=== PATIENT | female | born 1950 | race Caucasian/White ===

== ENCOUNTER 2017-06-23 08:01 | Emergency (ER) | payer MEDICARE ==
[~2017-06-23] VITALS: Ht 172.7 cm; Wt 72.6 kg
[2017-06-23] MEDS ORDERED: ONDA4TAB10 SL (08:30)
[2017-06-23] MEDS ORDERED: HYDR-2758 PO (08:30)
--- NOTE | 2017-06-23 08:31 | PHYS DOC ---
Adult General Chief Complaint Chief Complaint: RIB PAIN HPI HPI 67-year-old female presenting to the emergency department today with left rib pain. 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 The pain is sharp moderate intermittent and worse with deep breaths. She denies nausea or diaphoresis or vomiting. She denies having history of heart attacks in the past. Review of systems is negative for unilateral leg swelling hemoptysis or shortness of breath abdominal pain nausea vomiting or diaphoresis. All other review of systems is negative unless otherwise noted in history of present illness. ED course: 67-year-old female presenting to the emergency department today with pain in her chest wall after sustaining a mechanical injury while working on a pool. No crepitus to palpation of the chest wall. No evidence of ecchymosis. Tenderness to palpation of the left chest wall about 8 to 10th rib. Otherwise the patient is well-appearing and without any other abnormalities on physical exam. Lungs sounds are present bilaterally. Chest x-ray with rib series obtained along with blood work and EKG. x-rays unremarkable.EKG shows sinus rhythm with regular rate. Normal intervals. Normal axis. ST segments are congruent. Not suggestive of ACS. Reviewed by myself. X-rays reviewed by myself. No obvious fracture. The patient was then discharged home in stable condition to follow up with their primary care physician over the next 2-3 days. They were to return if their symptoms worsened or if they were concerned for any reason. [id number] discharge instructions and return precautions were given. Patient's questions were answered to their satisfaction. Patient is comfortable plan. Review of Systems Review of Systems SEE ABOVE. Current Medications Current Medications Current Medications Medications (Trade) Dose Ordered Sig/[facility] Start Time Stop Time Status Last Admin Dose Admin Ibuprofen (Motrin) 400 mg 1X ONCE 06/23/17 08:45 06/23/17 08:46 DC 06/23/17 08:58 400 MG Allergies Allergies Allergies Coded Allergies Type Severity Reaction Last Updated Verified No Known Drug Allergies 06/23/17 No Physical Exam Physical Exam SEE ABOVE Constitutional: Well developed, well nourished, no acute distress, non-toxic appearance. [] HENT: Normocephalic, atraumatic, bilateral external ears normal, oropharynx moist, no oral exudates, nose normal. [] Eyes: PERRLA, EOMI, conjunctiva normal, no discharge. [] Neck: Normal range of motion, no tenderness, supple, no stridor. [] Cardiovascular:Heart rate regular rhythm, no murmur []SEE ABOVE Lungs & Thorax: Bilateral breath sounds clear to auscultation []SEE ABOVE Abdomen: Bowel sounds normal, soft, no tenderness, no masses, no pulsatile masses. [] Skin: Warm, dry, no erythema, no rash. [] Back: No tenderness, no CVA tenderness. [] Extremities: No tenderness, no cyanosis, no clubbing, ROM intact, no edema. [] Neurologic: Alert and oriented X 3, normal motor function, normal sensory function, no focal deficits noted. [] Psychologic: Affect normal, judgement normal, mood normal. [] Current Patient Data Vital Signs Vital Signs Date Time Temp Pulse Resp B/P (MAP) Pulse Ox O2 Delivery O2 Flow Rate FiO2 06/23/17 09:00 83 22 144/68 (93) 99 Room Air 06/23/17 08:15 97.8 97.8 Lab Values Laboratory Tests Test 06/23/17 08:50 White Blood Count 6.9 x10^3/uL (4.0-11.0) Red Blood Count 3.81 x10^6/uL (3.50-5.40) Hemoglobin 12.5 g/dL (12.0-15.5) Hematocrit 35.9 % (36.0-47.0) L Mean Corpuscular Volume 94 fL (79-100) Mean Corpuscular Hemoglobin 33 pg (25-35) Mean Corpuscular Hemoglobin Concent 35 g/dL (31-37) Red Cell Distribution Width 12.6 % (11.5-14.5) Platelet Count 196 x10^3/uL (140-400) Neutrophils (%) (Auto) 60 % (31-73) Lymphocytes (%) (Auto) 28 % (24-48) Monocytes (%) (Auto) 9 % (0-9) Eosinophils (%) (Auto) 3 % (0-3) Basophils (%) (Auto) 1 % (0-3) Neutrophils # (Auto) 4.1 x10^3uL (1.8-7.7) Lymphocytes # (Auto) 1.9 x10^3/uL (1.0-4.8) Monocytes # (Auto) 0.6 x10^3/uL (0.0-1.1) Eosinophils # (Auto) 0.2 x10^3/uL (0.0-0.7) Basophils # (Auto) 0.1 x10^3/uL (0.0-0.2) Sodium Level 140 mmol/L (136-145) Potassium Level 4.4 mmol/L (3.5-5.1) Chloride Level 104 mmol/L (98-107) Carbon Dioxide Level 25 mmol/L (21-32) Anion Gap 11 (6-14) Blood Urea Nitrogen 16 mg/dL (7-20) Creatinine 1.2 mg/dL (0.6-1.0) H Estimated GFR (Cockcroft-Gault) 44.9 Glucose Level 99 mg/dL (70-99) Calcium Level 8.4 mg/dL (8.5-10.1) L Troponin I Quantitative < 0.017 ng/mL (0.000-0.055) Laboratory Tests 06/23/17 08:50 Laboratory Tests 06/23/17 08:50 EKG EKG [] Radiology/Procedures Radiology/Procedures [] Course & Med Decision Making Course & Med Decision Making Pertinent Labs and Imaging studies reviewed. (See chart for details) [] Dragon Disclaimer Dragon Disclaimer This electronic medical record was generated, in whole or in part, using a voice recognition dictation system. Departure Departure Impression: Primary Impression: Rib pain on left side Disposition: 01 HOME, SELF-CARE Condition: STABLE Referrals: ALTAF SCHERER MD Patient Instructions: Pain Medicine Instructions, Rib Contusion Additional Instructions: Thank you for allowing us to participate in your care today. Followup with your primary care physician in 3 days if your symptoms do not improve. Call your Primary Doctor tomorrow and inform them of your visit today. If you do not have a primary care provider you can ask for a list of our primary care providers. Return to the emergency department you have any new or concerning findings. This should be evaluated by the primary care physician and any necessary consulting services for continued management within a few days after discharge. Return to emergency room if you have any new or concerning symptoms including but not limited to fever, chills, nausea, vomiting, intractable pain, any new rashes, chest pain, shortness of air, uncontrolled bleeding, difficulty breathing, and/or vision loss. You may have been prescribed medication that can change in your level of thinking and ability to operate machinery. These medications include hydrocodone and Ativan. Also, Benadryl has been known to do this as well. Be sure to check with your pharmacist and ask if the medications you've prescribed can affect your level of consciousness. I recommend not operating heavy machinery or driving while on medication such as these. Scripts Ondansetron (ZOFRAN ODT) 4 Mg Tab.rapdis 1 TAB SL PRN Q8HRS Y for NAUSEA, #6 TAB 0 Refills Prov: NORBERTO LALA MD 06/23/17 Hydrocodone Bit/Acetaminophen (HYDROCODONE-APAP 5-325 ) 1 Each Tablet 1 TAB PO PRN Q6HRS Y for PAIN, #15 TAB 0 Refills Be careful as this medication may cause you to be drowsy or tired. Do not drive on this medication. Prov: NORBERTO LALA MD 06/23/17 NORBERTO LALA MD Jun 23, 2017 08:31
[2017-06-23] MEDS ORDERED: IBUPROFEN 400 MG TABLET. PO ONE (08:45)
--- NOTE | 2017-06-23 08:47 | RAD ---
Left rib series with single view chest 06/23/2017 at 0823 hours Indication: Left rib pain over the breast Comparison: Chest radiograph 05/05/2010 Technique: Single view of the chest and 4 dedicated views of the left ribs are provided. Findings: FINDINGS: The heart size is normal. The lungs are clear. No pleural effusion or pneumothorax is identified. The pulmonary vascularity is normal. There are 12 paired ribs. No evidence for a acutely displaced left-sided rib fracture. IMPRESSION: No acute abnormality detected. No acute displaced left-sided rib fracture.
[2017-06-23 09:03] LABS: BASO # 0.1 x10^3/uL (0.0-0.2); BASO % 1 % (0-3); EOS % 3 % (0-3); HEMATOCRIT 35.9 % (36.0-47.0); HEMOGLOBIN 12.5 g/dL (12.0-15.5); LYMPH # 1.9 x10^3/uL (1.0-4.8); LYMPH % 28 % (24-48); MEAN CORPUSCULAR HEMOGLOBIN 33 pg (25-35); MEAN CORPUSCULAR HGB CONC 35 g/dL (31-37); MEAN CORPUSCULAR VOLUME 94 fL (79-100); MONO % 9 % (0-9); NEUT % 60 % (31-73); PLATELET COUNT 196 x10^3/uL (140-400); RED BLOOD COUNT 3.81 x10^6/uL (3.50-5.40); RED CELL DISTRIBUTION WIDTH 12.6 % (11.5-14.5); WHITE BLOOD COUNT 6.9 x10^3/uL (4.0-11.0)
[2017-06-23 09:09] LABS: CALCIUM 8.4 mg/dL (8.5-10.1); CREATININE 1.2 mg/dL (0.6-1.0); GFR 44.9; POTASSIUM 4.4 mmol/L (3.5-5.1)
[2017-06-23 09:30] VITALS: BP 148/63
--- NOTE | 2017-06-23 13:36 | EKG ---
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
== END 2017-06-23 09:33 | disposition home or self-care (01) ==
LOC: ER 08:01
DX: R07.81 Pleurodynia (principal)
CPT/HCPCS: 36415; 71101; 80048; 84484; 85025; 93005; 99285-25

== ENCOUNTER 2020-12-02 14:46 | Inpatient (IN) | payer MEDICARE ==
[~2020-12-02] VITALS: Ht 172.7 cm; Wt 83.0 kg
[~2020-12-02 14:46] MED LIST: HYDR-2761 PO; ONDA4TAB10 SL
[2020-12-02 15:31] LABS: BASO # 0.1 x10^3/uL (0.0-0.2); BASO % 1 % (0-3); EOS # 0.1 x10^3/uL (0.0-0.7); EOS % 1 % (0-3); HEMATOCRIT 36.3 % (36.0-47.0); HEMOGLOBIN 12.1 g/dL (12.0-15.5); LYMPH # 1.1 x10^3/uL (1.0-4.8); LYMPH % 14 % (24-48); MEAN CORPUSCULAR HEMOGLOBIN 32 pg (25-35); MEAN CORPUSCULAR HGB CONC 33 g/dL (31-37); MEAN CORPUSCULAR VOLUME 97 fL (79-100); MONO # 0.9 x10^3/uL (0.0-1.1); MONO % 12 % (0-9); NEUT # 5.7 x10^3/uL (1.8-7.7); NEUT % 73 % (31-73); PLATELET COUNT 197 x10^3/uL (140-400); RED BLOOD COUNT 3.75 x10^6/uL (3.50-5.40); RED CELL DISTRIBUTION WIDTH 13.3 % (11.5-14.5); WHITE BLOOD COUNT 7.8 x10^3/uL (4.0-11.0)
[2020-12-02 15:51] LABS: ALBUMIN 3.9 g/dL (3.4-5.0); ALK PHOS 117 U/L (46-116); ALT (SGPT) 27 U/L (14-59); AST (SGOT) 35 U/L (15-37); BLOOD UREA NITROGEN 17 mg/dL (7-20); CALCIUM 9.1 mg/dL (8.5-10.1); CARBON DIOXIDE 25 mmol/L (21-32); DIRECT BILIRUBIN < 0.1 mg/dL (0.0-0.2); GLUCOSE 107 mg/dL (70-99); LIPASE 166 U/L (73-393); TOTAL BILIRUBIN 0.5 mg/dL (0.2-1.0); TOTAL PROTEIN 7.1 g/dL (6.4-8.2)
--- NOTE | 2020-12-02 15:54 | PHYS DOC ---
Past Medical History Past Medical History: COPD Additional Past Medical Histor: arrythmia Past Surgical History: Hysterectomy Additional Past Surgical Histo: Neck Smoking Status: Former Smoker Alcohol Use: Rarely Drug Use: None General Adult EDM: Chief Complaint: SHORTNESS OF BREATH HPI: HPI: This is a pleasant 70-year-old female who is in the emergency department today with shortness of breath and chest pain. This is been present for about 3 days. She denies abdominal pain vomiting cough or fever. She has not had recent exposure to Covid. Her pain is a pressure sensation that is nonradiating without alleviating factors. It is mild to moderate intermittent without exacerbating factors. It is not associated with diaphoresis fevers chills. She has not had leg swelling hemoptysis or leg pain. She did recently have a total knee replacement surgery of the left knee. This has been healing without difficulty. [facility] Review of systems is negative for abdominal pain vomiting fevers chills. Positive for chest pain. Positive for shortness of breath. All other review of systems negative. ED course: 70-year-old female presenting with shortness of breath and chest pain. On arrival EKG obtained and reviewed by myself shows sinus rhythm. Right bundle branch block pattern present. ST segments congruent. Not suggestive of acute ischemia. Chest x-ray blood work and CT angiogram ordered. CBC unrema rkable. Chemistry panel unremarkable. Troponin within normal limits. proBNP mildly elevated. Chest x-ray within normal limits. CT angiogram negative for pulmonary embolism. Will admit the patient for serial troponins. I spoke to the hospitalist who accepts patient for admission. Heart Score: HEART Score for Chest Pain: HEART Score for Chest Pain Response (Comments) Value History Moderately Suspicious 1 ECG Normal 0 Age > 65 2 Risk Factors 1 or 2 Risk Factors 1 Troponin < Normal Limit 0 Total 4 Risk Factors: Risk Factors: DM, Current or recent (<one month) smoker, HTN, HLP, family history of CAD, obesity. Risk Scores: Score 0 - 3: 2.5% MACE over next 6 weeks - Discharge Home Score 4 - 6: 20.3% MACE over next 6 weeks - Admit for Clinical Observation Score 7 - 10: 72.7% MACE over next 6 weeks - Early Invasive Strategies Allergies: Allergies: Allergies Coded Allergies Type Severity Reaction Last Updated Verified No Known Drug Allergies 06/23/17 No Physical Exam: PE: Constitutional: Well developed, well nourished, no acute distress, non-toxic appearance. [] HENT: Normocephalic, atraumatic, bilateral external ears normal, oropharynx moist, no oral exudates, nose normal. [] Eyes: PERRLA, EOMI, conjunctiva normal, no discharge. [] Neck: Normal range of motion, no tenderness, supple, no stridor. [] Cardiovascular:Heart rate regular rhythm, no murmur [] Lungs & Thorax: Bilateral breath sounds clear to auscultation [] Abdomen: Bowel sounds normal, soft, no tenderness, no masses, no pulsatile masses. [] Skin: Warm, dry, no erythema, no rash. [] Back: No tenderness, no CVA tenderness. [] Extremities: No tenderness, no cyanosis, no clubbing, ROM intact, no edema. [] Left knee has a healing scar which is clean dry and intact. Palpable pulse distally with 2-second cap refill. Normal neurovascular status of the extremities. Neurologic: Alert and oriented X 3, normal motor function, normal sensory function, no focal deficits noted. [] Psychologic: Affect normal, judgement normal, mood normal. [] Current Patient Data: Labs: Laboratory Tests Test 12/02/20 15:23 White Blood Count 7.8 x10^3/uL (4.0-11.0) Red Blood Count 3.75 x10^6/uL (3.50-5.40) Hemoglobin 12.1 g/dL (12.0-15.5) Hematocrit 36.3 % (36.0-47.0) Mean Corpuscular Volume 97 fL (79-100) Mean Corpuscular Hemoglobin 32 pg (25-35) Mean Corpuscular Hemoglobin Concent 33 g/dL (31-37) Red Cell Distribution Width 13.3 % (11.5-14.5) Platelet Count 197 x10^3/uL (140-400) Neutrophils (%) (Auto) 73 % (31-73) Lymphocytes (%) (Auto) 14 % (24-48) L Monocytes (%) (Auto) 12 % (0-9) H Eosinophils (%) (Auto) 1 % (0-3) Basophils (%) (Auto) 1 % (0-3) Neutrophils # (Auto) 5.7 x10^3/uL (1.8-7.7) Lymphocytes # (Auto) 1.1 x10^3/uL (1.0-4.8) Monocytes # (Auto) 0.9 x10^3/uL (0.0-1.1) Eosinophils # (Auto) 0.1 x10^3/uL (0.0-0.7) Basophils # (Auto) 0.1 x10^3/uL (0.0-0.2) Laboratory Tests 12/02/20 15:23 Vital Signs: Vital Signs Date Time Temp Pulse Resp B/P (MAP) Pulse Ox O2 Delivery O2 Flow Rate FiO2 12/02/20 14:46 98.7 94 18 142/66 (91) 99 Room Air 98.7 EKG: EKG: [] Radiology/Procedures: Radiology/Procedures: [] Course & Med Decision Making: Course & Med Decision Making Pertinent Labs and Imaging studies reviewed. (See chart for details) [] Dragon Disclaimer: Dragjose Disclaimer: This electronic medical record was generated, in whole or in part, using a voice recognition dictation system. Departure Departure Impression: Primary Impression: Chest pain Additional Impression: Shortness of breath Disposition: ADMITTED INPT THIS HOSP Admitting Physician: [facility] Condition: STABLE Referrals: NO PCP (PCP) NORBERTO LALA MD Dec 02, 2020 15:54
--- NOTE | 2020-12-02 15:58 | RAD ---
INDICATION: Reason: SOA / Spl. Instructions: / History: COMPARISON: June 2017 FINDINGS: Single view of chest obtained. Calcific atherosclerosis. Cardiac silhouette is similar to prior. Obliquely oriented line left upper lung likely secondary to overlap of structures. There is a similar appearance on the right. No defini te focal airspace consolidation. IMPRESSION: * Similar exam compared to prior without a new airspace consolidation. Electronically signed by: Cody Brannon MD (12/02/2020 3:55 PM) [id number]
[2020-12-02] MEDS ORDERED: IOHEXOL 350 MG/ML 100 ML VIAL. IV ONE (17:00)
[2020-12-02] MEDS ORDERED: CONTRAST GIVEN. MC PRN (17:00)
[2020-12-02 17:20] LABS: ANION GAP 9 (6-14); CHLORIDE 105 mmol/L (98-107); POTASSIUM 5.2 mmol/L (3.5-5.1); SODIUM 139 mmol/L (136-145)
--- NOTE | 2020-12-02 17:49 | RAD ---
Exam: CTA chest INDICATION: Chest pain TECHNIQUE: Sequential axial images through the chest obtained following the administration of 75 mL o f Isovue-370 IV contrast. Sagittal and coronal reformatted images were reconstructed from the axial d jonathan and reviewed. 3-D reformatted images were reconstructed from the axial data and reviewed. Comparisons: Chest x-ray same day FINDINGS: Visualized portions of the thyroid are unremarkable. No enlarged mediastinal lymph nodes. Heart size is normal. No pericardial effusion. Coronary artery calcifications. Thoracic aorta has a n ormal course and caliber. Pulmonary artery not enlarged. No pulmonary embolus identified within the m ain, lobar or segmental pulmonary arteries. Airways are patent. Mild centrilobular emphysematous change noted the upper lungs. No consolidation o r pneumothorax. No pleural effusion or thickening. Visualized upper abdomen is unremarkable. No suspicious osseous lesions or acute fractures. IMPRESSION: No pulmonary embolus identified within the main, lobar or segmental pulmonary arteries. Exposure: One or more of the following in the visualized dose reduction techniques were utilized for this examination: 1. Automated exposure control 2. Adjustment of the MA and/or KV according to patient size 3. Use of iterative of reconstructive technique Electronically signed by: Brenda Santiago MD (12/02/2020 5:47 PM) [facility]
[2020-12-02 20:30] VITALS: BP 135/63
[2020-12-02] MEDS ORDERED: NAPR220C4 PO (21:57)
[2020-12-02] MEDS: traMADol 50 MG TABLET PO PRN (22:40)
--- NOTE | 2020-12-02 22:47 | PDOC1 ---
History and Physical Date of Admission Date of Admission DATE: 12/02/20 TIME: 22:41 Identification/Chief Complaint Chief Complaint Chest Pain Source Source: Patient History of Present Illness History of Present Illness Patient is a 70 yo female with no significant PMHx, who presented to the ED with complaint of intermittent left sided chest pain for the past 3-4 days. She describes her pain as more of chest pressure. She denies any significant aggravating or alleviating factors, but does note associated exertional dyspnea. Upon evaluation in the ED, initial troponin was <0.017. She had a recent left total knee replacement about 6 weeks ago. CTA obtained on admission negative for PE. Will admit patient for further medical management. Past Medical History Past Medical History No pertinent PMHx Past Surgical History Past Surgical History Left knee replacement Family History Family History: Coronary Artery Disease Social History Smoke: <1 pack per day ALCOHOL: none Drugs: None Current Problem List Problem List Problems Medical Problems: (1) Chest pain Status: Acute (2) Shortness of breath Status: Acute Current Medications Current Medications Current Medications Iohexol (Omnipaque 350 Mg/ml) 90 ml 1X ONCE IV Last administered on 12/02/20at 17:20; Start 12/02/20 at 17:00; Stop 12/02/20 at 17:01; Status DC Info (CONTRAST GIVEN -- Rx MONITORING) 1 each PRN DAILY PRN MC SEE COMMENTS; Start 12/02/20 at 17:00; Stop 12/04/20 at 16:59 Tramadol HCl (Ultram) 50 mg PRN Q6HRS PRN PO PAIN Last administered on at 22:40; Start 12/02/20 at 22:15 Lorazepam (Ativan) 1 mg PRN Q6HRS PRN PO ANXIETY / AGITATION Last administered on 12/02/20at 22:40; Start 12/02/20 at 22:15 Lorazepam (Ativan) 2 mg PRN Q6HRS PRN PO ANXIETY / AGITATION; Start 12/02/20 at 22:15 Active Scripts Active Zofran Odt (Ondansetron) 4 Mg Tab.rapdis 1 Tab SL PRN Q8HRS PRN Reported Aleve (Naproxen Sodium) 220 Mg Capsule 220 Mg PO BID PRN Allergies Allergies: Coded Allergies: No Known Drug Allergies (Unverified , 06/23/17) ROS Review of System GENERAL: No history of weight change, weakness or fevers. SKIN: No bruising, hair changes or rashes. EYES: No blurred, double or loss of vision. NOSE AND THROAT: No history of nosebleeds, hoarseness or sore throat. HEART: Chest pain. Denies palpitations. LUNGS: Dyspnea on exertion. Denies cough, hemoptysis, wheezing. GASTROINTESTINAL: Denies nausea, vomiting, abdominal pain. GENITOURINARY: Denies dysuria, frequency, urgency, hematuria. NEUROLOGIC: Denies history of numbness, tingling, tremor or weakness. PSYCHIATRIC: Denies anxiety, denies depression. ENDOCRINE: No history of heat or cold intolerance, polyuria or polydipsia. EXTREMITIES: Left knee pain. Denies muscle weakness. Physical Exam Physical Exam General: Alert, Oriented X3, Cooperative, mild distress HEENT: PERRLA, EOMI Lungs: Clear to auscultation, Normal air movement Heart: Tachycardic. No murmurs Cardiovascular: S1, S2 Abdomen: Normal bowel sounds, Soft, No tenderness Extremities: Left knee with well-healed surgical scar, no erythema or edema. No clubbing, No cyanosis Skin: No rashes, No significant lesion Neuro: Normal speech, Normal tone, Sensation intact Psych/Mental Status: Anxious. Mental status NL. Vitals Vitals Vital Signs Date Time Temp Pulse Resp B/P (MAP) Pulse Ox O2 Delivery O2 Flow Rate FiO2 12/02/20 22:40 Room Air 12/02/20 20:30 98.0 88 20 135/63 (87) 99 98.0 Labs Labs Laboratory Tests Test 12/02/20 15:23 White Blood Count 7.8 x10^3/uL (4.0-11.0) Red Blood Count 3.75 x10^6/uL (3.50-5.40) Hemoglobin 12.1 g/dL (12.0-15.5) Hematocrit 36.3 % (36.0-47.0) Mean Corpuscular Volume 97 fL (79-100) Mean Corpuscular Hemoglobin 32 pg (25-35) Mean Corpuscular Hemoglobin Concent 33 g/dL (31-37) Red Cell Distribution Width 13.3 % (11.5-14.5) Platelet Count 197 x10^3/uL (140-400) Neutrophils (%) (Auto) 73 % (31-73) Lymphocytes (%) (Auto) 14 % (24-48) Monocytes (%) (Auto) 12 % (0-9) Eosinophils (%) (Auto) 1 % (0-3) Basophils (%) (Auto) 1 % (0-3) Neutrophils # (Auto) 5.7 x10^3/uL (1.8-7.7) Lymphocytes # (Auto) 1.1 x10^3/uL (1.0-4.8) Monocytes # (Auto) 0.9 x10^3/uL (0.0-1.1) Eosinophils # (Auto) 0.1 x10^3/uL (0.0-0.7) Basophils # (Auto) 0.1 x10^3/uL (0.0-0.2) Sodium Level 139 mmol/L (136-145) Potassium Level 5.2 mmol/L (3.5-5.1) Chloride Level 105 mmol/L (98-107) Carbon Dioxide Level 25 mmol/L (21-32) Anion Gap 9 (6-14) Blood Urea Nitrogen 17 mg/dL (7-20) Creatinine 1.0 mg/dL (0.6-1.0) Estimated GFR (Cockcroft-Gault) 55.0 Glucose Level 107 mg/dL (70-99) Calcium Level 9.1 mg/dL (8.5-10.1) Total Bilirubin 0.5 mg/dL (0.2-1.0) Direct Bilirubin < 0.1 mg/dL (0.0-0.2) Aspartate Amino Transf (AST/SGOT) 35 U/L (15-37) Alanine Aminotransferase (ALT/SGPT) 27 U/L (14-59) Alkaline Phosphatase 117 U/L (46-116) Troponin I Quantitative < 0.017 ng/mL (0.000-0.055) ES-Tgf-H-Type Natriuretic Peptide 245 pg/mL (0-124) Total Protein 7.1 g/dL (6.4-8.2) Albumin 3.9 g/dL (3.4-5.0) Lipase 166 U/L (73-393) Laboratory Tests Test 12/02/20 15:23 White Blood Count 7.8 x10^3/uL (4.0-11.0) Red Blood Count 3.75 x10^6/uL (3.50-5.40) Hemoglobin 12.1 g/dL (12.0-15.5) Hematocrit 36.3 % (36.0-47.0) Mean Corpuscular Volume 97 fL (79-100) Mean Corpuscular Hemoglobin 32 pg (25-35) Mean Corpuscular Hemoglobin Concent 33 g/dL (31-37) Red Cell Distribution Width 13.3 % (11.5-14.5) Platelet Count 197 x10^3/uL (140-400) Neutrophils (%) (Auto) 73 % (31-73) Lymphocytes (%) (Auto) 14 % (24-48) Monocytes (%) (Auto) 12 % (0-9) Eosinophils (%) (Auto) 1 % (0-3) Basophils (%) (Auto) 1 % (0-3) Neutrophils # (Auto) 5.7 x10^3/uL (1.8-7.7) Lymphocytes # (Auto) 1.1 x10^3/uL (1.0-4.8) Monocytes # (Auto) 0.9 x10^3/uL (0.0-1.1) Eosinophils # (Auto) 0.1 x10^3/uL (0.0-0.7) Basophils # (Auto) 0.1 x10^3/uL (0.0-0.2) Sodium Level 139 mmol/L (136-145) Potassium Level 5.2 mmol/L (3.5-5.1) Chloride Level 105 mmol/L (98-107) Carbon Dioxide Level 25 mmol/L (21-32) Anion Gap 9 (6-14) Blood Urea Nitrogen 17 mg/dL (7-20) Creatinine 1.0 mg/dL (0.6-1.0) Estimated GFR (Cockcroft-Gault) 55.0 Glucose Level 107 mg/dL (70-99) Calcium Level 9.1 mg/dL (8.5-10.1) Total Bilirubin 0.5 mg/dL (0.2-1.0) Direct Bilirubin < 0.1 mg/dL (0.0-0.2) Aspartate Amino Transf (AST/SGOT) 35 U/L (15-37) Alanine Aminotransferase (ALT/SGPT) 27 U/L (14-59) Alkaline Phosphatase 117 U/L (46-116) Troponin I Quantitative < 0.017 ng/mL (0.000-0.055) WF-Hed-V-Type Natriuretic Peptide 245 pg/mL (0-124) Total Protein 7.1 g/dL (6.4-8.2) Albumin 3.9 g/dL (3.4-5.0) Lipase 166 U/L (73-393) Images Images INDICATION: Reason: SOA / Spl. Instructions: / History: COMPARISON: June 2017 FINDINGS: Single view of chest obtained. Calcific atherosclerosis. Cardiac silhouette is similar to prior. Obliquely oriented line left upper lung likely secondary to overlap of structures. There is a similar appearance on the right. No definite focal airspace consolidation. IMPRESSION: * Similar exam compared to prior without a new airspace consolidation. Exam: CTA chest INDICATION: Chest pain TECHNIQUE: Sequential axial images through the chest obtained following the administration of 75 mL of Isovue-370 IV contrast. Sagittal and coronal reformatted images were reconstructed from the axial data and reviewed. 3-D reformatted images were reconstructed from the axial data and reviewed. Comparisons: Chest x-ray same day FINDINGS: Visualized portions of the thyroid are unremarkable. No enlarged mediastinal lymph nodes. Heart size is normal. No pericardial effusion. Coronary artery calcifications. Thoracic aorta has a normal course and caliber. Pulmonary artery not enlarged. No pulmonary embolus identified within the main, lobar or segmental pulmonary arteries. Airways are patent. Mild centrilobular emphysematous change noted the upper lungs. No consolidation or pneumothorax. No pleural effusion or thickening. Visualized upper abdomen is unremarkable. No suspicious osseous lesions or acute fractures. IMPRESSION: No pulmonary embolus identified within the main, lobar or segmental pulmonary arteries. VTE Prophylaxis Ordered VTE Prophylaxis Devices: No VTE Pharmacological Prophylaxi: Yes Assessment/Plan Assessment/Plan Chest pain. Elevated BNP Hyperkalemia Plan: Continue trend troponins Consults cardiology IV morphine as needed, IV Zofran as needed NTG as needed Troponins remain undetectable, may evaluate patient with echocardiogram FEN - Cardiac diet PPX - SCDs FULL CODE Dispo - inpatient for above Justifications for Admission Other Justification MARCI ARGUETA MD Dec 02, 2020 22:47
[2020-12-02] MEDS ORDERED: CAPS1ADH8 TP (23:02)
[2020-12-02 23:40] VITALS: BP 147/68
[2020-12-03] MEDS ORDERED: CALCIUM CARBONATE 500 MG TAB.CHEW PO PRN (00:15)
[2020-12-03] MEDS ORDERED: ACETAMINOPHEN 325 MG TABLET. PO PRN (00:15)
[2020-12-03] MEDS ORDERED: NITROGLYCERIN SUBLINGUAL 0.4 MG BOTTLE OF 25. SL PRN (00:15)
[2020-12-03] MEDS ORDERED: MAG HYDROX/ALUMINUM HYD/SIMETH 30 ML ORAL.SUSP PO PRN (00:15)
[2020-12-03] MEDS ORDERED: ONDANSETRON PF 4 MG/2 ML VIAL. IVP PRN (00:15)
[2020-12-03] MEDS ORDERED: MORPHINE SULFATE 2 MG/ML VIAL. IV PRN (00:15)
[2020-12-03] MEDS ORDERED: MAGNESIUM HYDROXIDE 2,400 MG/30 ML ORAL.SUSP. PO PRN (00:15)
[2020-12-03] MEDS ORDERED: BISACODYL 10 MG SUPP.RECT. PR PRN (00:15)
[2020-12-03 03:43] VITALS: BP 143/67
[2020-12-03] MEDS: traMADol 50 MG TABLET PO PRN ×2 (04:25→10:35)
[2020-12-03 07:00] VITALS: BP 119/50
--- NOTE | 2020-12-03 08:03 | PDOC ---
[employer] PROGRESS NOTE Date of Service DOS: DATE: 12/03/20 TIME: 08:00 Chief Complaint Chief Complaint A/P: Chest pain. Elevated BNP Hyperkalemia Former smoker Panic attack Insomnia History of Present Illness History of Present Illness Ms Curtis is a 70 yo female with PMHx chronic bronchitis, who presented to the ED with complaint of shortness of breath for 3 days. She became concerned when intermittent left sided chest pain became associated over the past day prior to hospitalization. She describes her pain as more of chest pressure. She denies any significant aggravating or alleviating factors, but does note associated exertional dyspnea. Upon evaluation in the ED, initial troponin was <0.017. She had a recent left total knee replacement about 6 weeks ago. CTA obtained on admission negative for PE. Admitted patient for further medical management. Troponin negative. No O2 requirements. Shortness of breath resolved after low- dose Ativan and she slept through the night. She she woke up feeling refreshed. Feels excellent today. Vitals/I&O Vitals/I&O: Vital Signs Date Time Temp Pulse Resp B/P (MAP) Pulse Ox O2 Delivery O2 Flow Rate FiO2 12/03/20 05:25 Room Air 12/03/20 03:43 98.0 73 20 143/67 (92) 97 98.0 I & O 12/02/20 12/02/20 12/03/20 15:00 23:00 07:00 Intake Total 200 ml Balance 200 ml Physical Exam General: Alert, Oriented X3, Cooperative Heart: Regular rate, Normal S1, Normal S2 Lungs: Clear Abdomen: Normal bowel sounds, Soft Extremities: No clubbing, No cyanosis Skin: No rashes, No breakdown Labs Labs: Laboratory Tests Test 12/02/20 15:23 12/03/20 00:30 12/03/20 03:00 White Blood Count 7.8 x10^3/uL (4.0-11.0) Red Blood Count 3.75 x10^6/uL (3.50-5.40) Hemoglobin 12.1 g/dL (12.0-15.5) Hematocrit 36.3 % (36.0-47.0) Mean Corpuscular Volume 97 fL (79-100) Mean Corpuscular Hemoglobin 32 pg (25-35) Mean Corpuscular Hemoglobin Concent 33 g/dL (31-37) Red Cell Distribution Width 13.3 % (11.5-14.5) Platelet Count 197 x10^3/uL (140-400) Neutrophils (%) (Auto) 73 % (31-73) Lymphocytes (%) (Auto) 14 % (24-48) Monocytes (%) (Auto) 12 % (0-9) Eosinophils (%) (Auto) 1 % (0-3) Basophils (%) (Auto) 1 % (0-3) Neutrophils # (Auto) 5.7 x10^3/uL (1.8-7.7) Lymphocytes # (Auto) 1.1 x10^3/uL (1.0-4.8) Monocytes # (Auto) 0.9 x10^3/uL (0.0-1.1) Eosinophils # (Auto) 0.1 x10^3/uL (0.0-0.7) Basophils # (Auto) 0.1 x10^3/uL (0.0-0.2) Sodium Level 139 mmol/L (136-145) Potassium Level 5.2 mmol/L (3.5-5.1) Chloride Level 105 mmol/L (98-107) Carbon Dioxide Level 25 mmol/L (21-32) Anion Gap 9 (6-14) Blood Urea Nitrogen 17 mg/dL (7-20) Creatinine 1.0 mg/dL (0.6-1.0) Estimated GFR (Cockcroft-Gault) 55.0 Glucose Level 107 mg/dL (70-99) Calcium Level 9.1 mg/dL (8.5-10.1) Total Bilirubin 0.5 mg/dL (0.2-1.0) Direct Bilirubin < 0.1 mg/dL (0.0-0.2) Aspartate Amino Transf (AST/SGOT) 35 U/L (15-37) Alanine Aminotransferase (ALT/SGPT) 27 U/L (14-59) Alkaline Phosphatase 117 U/L (46-116) Troponin I Quantitative < 0.017 ng/mL (0.000-0.055) < 0.017 ng/mL (0.000-0.055) < 0.017 ng/mL (0.000-0.055) GV-Kmj-F-Type Natriuretic Peptide 245 pg/mL (0-124) Total Protein 7.1 g/dL (6.4-8.2) Albumin 3.9 g/dL (3.4-5.0) Lipase 166 U/L (73-393) Assessment and Plan Assessmemt and Plan Problems Medical Problems: (1) Chest pain Status: Acute (2) Shortness of breath Status: Acute Comment Review of Relevant I have reviewed the following items cristina (where applicable) has been applied. Medications: Current Medications Medications (Trade) Dose Ordered Sig/Jamal Route PRN Reason Start Time Stop Time Status Last Admin Dose Admin Iohexol (Omnipaque 350 Mg/ml) 90 ml 1X ONCE IV 12/02/20 17:00 12/02/20 17:01 DC 12/02/20 17:20 Tramadol HCl (Ultram) 50 mg PRN Q6HRS PRN PO PAIN 12/02/20 22:15 12/03/20 04:25 Lorazepam (Ativan) 1 mg PRN Q6HRS PRN PO ANXIETY / AGITATION 12/02/20 22:15 12/02/20 22:40 Justifications for Admission Other Justification LEOBARDO CRONIN MD Dec 03, 2020 08:03
[2020-12-03 11:00] VITALS: BP 107/52
[2020-12-03] MEDS ORDERED: TRAZ-118 PO (13:19)
[2020-12-03] MEDS ORDERED: LORA0.5T96 PO (13:19)
--- NOTE | 2020-12-03 13:25 | PDOC3 ---
Discharge Summary Visit Information Date of Admission: Dec 02, 2020 Date of Discharge: Dec 03, 2020 Admitting Diagnosis: Shortness of breath Final Diagnosis Problems Medical Problems: (1) Chest pain Status: Acute (2) Shortness of breath Status: Acute Brief Hospital Course Allergies Allergies Coded Allergies Type Severity Reaction Last Updated Verified No Known Drug Allergies 06/23/17 No Vital Signs Vital Signs Date Time Temp Pulse Resp B/P (MAP) Pulse Ox O2 Delivery O2 Flow Rate FiO2 12/03/20 11:32 16 Room Air 12/03/20 11:00 97.9 81 107/52 (70) 95 97.9 12/03/20 07:00 2.0 Lab Results Laboratory Tests Test 12/02/20 15:23 12/03/20 00:30 12/03/20 03:00 White Blood Count 7.8 x10^3/uL (4.0-11.0) Red Blood Count 3.75 x10^6/uL (3.50-5.40) Hemoglobin 12.1 g/dL (12.0-15.5) Hematocrit 36.3 % (36.0-47.0) Mean Corpuscular Volume 97 fL (79-100) Mean Corpuscular Hemoglobin 32 pg (25-35) Mean Corpuscular Hemoglobin Concent 33 g/dL (31-37) Red Cell Distribution Width 13.3 % (11.5-14.5) Platelet Count 197 x10^3/uL (140-400) Neutrophils (%) (Auto) 73 % (31-73) Lymphocytes (%) (Auto) 14 % (24-48) Monocytes (%) (Auto) 12 % (0-9) Eosinophils (%) (Auto) 1 % (0-3) Basophils (%) (Auto) 1 % (0-3) Neutrophils # (Auto) 5.7 x10^3/uL (1.8-7.7) Lymphocytes # (Auto) 1.1 x10^3/uL (1.0-4.8) Monocytes # (Auto) 0.9 x10^3/uL (0.0-1.1) Eosinophils # (Auto) 0.1 x10^3/uL (0.0-0.7) Basophils # (Auto) 0.1 x10^3/uL (0.0-0.2) Sodium Level 139 mmol/L (136-145) Potassium Level 5.2 mmol/L (3.5-5.1) Chloride Level 105 mmol/L (98-107) Carbon Dioxide Level 25 mmol/L (21-32) Anion Gap 9 (6-14) Blood Urea Nitrogen 17 mg/dL (7-20) Creatinine 1.0 mg/dL (0.6-1.0) Estimated GFR (Cockcroft-Gault) 55.0 Glucose Level 107 mg/dL (70-99) Calcium Level 9.1 mg/dL (8.5-10.1) Total Bilirubin 0.5 mg/dL (0.2-1.0) Direct Bilirubin < 0.1 mg/dL (0.0-0.2) Aspartate Amino Transf (AST/SGOT) 35 U/L (15-37) Alanine Aminotransferase (ALT/SGPT) 27 U/L (14-59) Alkaline Phosphatase 117 U/L (46-116) Troponin I Quantitative < 0.017 ng/mL (0.000-0.055) < 0.017 ng/mL (0.000-0.055) < 0.017 ng/mL (0.000-0.055) GU-Chh-P-Type Natriuretic Peptide 245 pg/mL (0-124) Total Protein 7.1 g/dL (6.4-8.2) Albumin 3.9 g/dL (3.4-5.0) Lipase 166 U/L (73-393) Laboratory Tests Test 12/02/20 15:23 12/03/20 00:30 12/03/20 03:00 White Blood Count 7.8 x10^3/uL (4.0-11.0) Red Blood Count 3.75 x10^6/uL (3.50-5.40) Hemoglobin 12.1 g/dL (12.0-15.5) Hematocrit 36.3 % (36.0-47.0) Mean Corpuscular Volume 97 fL (79-100) Mean Corpuscular Hemoglobin 32 pg (25-35) Mean Corpuscular Hemoglobin Concent 33 g/dL (31-37) Red Cell Distribution Width 13.3 % (11.5-14.5) Platelet Count 197 x10^3/uL (140-400) Neutrophils (%) (Auto) 73 % (31-73) Lymphocytes (%) (Auto) 14 % (24-48) Monocytes (%) (Auto) 12 % (0-9) Eosinophils (%) (Auto) 1 % (0-3) Basophils (%) (Auto) 1 % (0-3) Neutrophils # (Auto) 5.7 x10^3/uL (1.8-7.7) Lymphocytes # (Auto) 1.1 x10^3/uL (1.0-4.8) Monocytes # (Auto) 0.9 x10^3/uL (0.0-1.1) Eosinophils # (Auto) 0.1 x10^3/uL (0.0-0.7) Basophils # (Auto) 0.1 x10^3/uL (0.0-0.2) Sodium Level 139 mmol/L (136-145) Potassium Level 5.2 mmol/L (3.5-5.1) Chloride Level 105 mmol/L (98-107) Carbon Dioxide Level 25 mmol/L (21-32) Anion Gap 9 (6-14) Blood Urea Nitrogen 17 mg/dL (7-20) Creatinine 1.0 mg/dL (0.6-1.0) Estimated GFR (Cockcroft-Gault) 55.0 Glucose Level 107 mg/dL (70-99) Calcium Level 9.1 mg/dL (8.5-10.1) Total Bilirubin 0.5 mg/dL (0.2-1.0) Direct Bilirubin < 0.1 mg/dL (0.0-0.2) Aspartate Amino Transf (AST/SGOT) 35 U/L (15-37) Alanine Aminotransferase (ALT/SGPT) 27 U/L (14-59) Alkaline Phosphatase 117 U/L (46-116) Troponin I Quantitative < 0.017 ng/mL (0.000-0.055) < 0.017 ng/mL (0.000-0.055) < 0.017 ng/mL (0.000-0.055) YR-Cci-P-Type Natriuretic Peptide 245 pg/mL (0-124) Total Protein 7.1 g/dL (6.4-8.2) Albumin 3.9 g/dL (3.4-5.0) Lipase 166 U/L (73-393) Brief Hospital Course Ms Curtis is a 70 yo female with PMHx chronic bronchitis, who presented to the ED with complaint of shortness of breath for 3 days. She became concerned when intermittent left sided chest pain became associated over the past day prior to hospitalization. She describes her pain as more of chest pressure. She denies any significant aggravating or alleviating factors, but does note associated exertional dyspnea. Upon evaluation in the ED, initial troponin was <0.017. She had a recent left total knee replacement about 6 weeks ago. CTA obtained on admission negative for PE. Admitted patient for further medical management. Troponin negative. No O2 requirements. Shortness of breath resolved after low- dose Ativan and she slept through the night. She she woke up feeling refreshed. Feels excellent today. Problem list: Chest pain - resolved Elevated BNP Hyperkalemia Former smoker Panic attack likely related to her first time out in a long time. Insomnia -as needed Ativan for few nights while waiting for trazodone to work. Abnormal CT - mild centrilobular emphysema likely from prior smoking history Greater than 30 minutes spent on d/c hoome Discharge Information Condition at Discharge: Improved Follow Up: Weeks Disposition/Orders: D/C to Home Scheduled Capsaicin/Menthol (Salonpas Gel-Patch Hot) 1 Each Adh..patch, 1 PATCH TP DAILY for pain for 30 Days, #30 Ref 0 (Reported) Entered as Reported by: Oscar Cooper on 12/02/202301 Last Action: New Order on 12/02/202301 by Oscar Cooper Trazodone Hcl (Trazodone Hcl) 50 Mg Tablet, 1 TAB PO QHS for Sleep for 30 Days, #30 Ref 1 Prescribed by: LEOBARDO CRONIN MD on 12/03/20 1319 Scheduled PRN Lorazepam (Ativan) 0.5 Mg Tablet, 0.5 MG PO PRN BID PRN for Anxiety/sleep for 6 Days, #6 Prescribed by: LEOBARDO CRONIN MD on 12/03/20 1320 Naproxen Sodium (Aleve) 220 Mg Capsule, 220 MG PO BID PRN for bidprn, (Reported) Entered as Reported by: Oscar Cooper on 12/02/202156 Last Action: New Order on 12/02/202156 by Oscar Cooper Ondansetron (Zofran Odt) 4 Mg Tab.rapdis, 1 TAB SL PRN Q8HRS PRN for NAUSEA, #6 Ref 0 Prescribed by: NORBERTO LALA on 06/23/17 0830 Justicifation of Admission Dx: Justifications for Admission: Justification of Admission Dx: Yes LEOBARDO CRONIN MD Dec 03, 2020 13:25
[2020-12-03 15:00] VITALS: BP 111/53
--- NOTE | 2020-12-03 17:28 | NUR ---
Pt alert and oriented throughout shift. Pt denied SOA during shift. Pt stated pain controlled throughout shift. Pt requested a couple ice packs for her knee and that really helped as that is what she does at home. Pt with no anxiety issues throughout shift. Pt was able to rest most of the day. Pt educated on anxiety attacks, ativan, and trazadone. Pt adviced when next dose of medications is due. Pt tolerated IV removal. Tip intact, pressure applied, bleeding stopped, bandage applied. All patient questions answered at this time. Pt with all belongings waiting for ride to get to get here. Pt will be wheeled out to husbands vehicle when he arrives.
--- NOTE | 2020-12-04 10:13 | EKG ---
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
--- NOTE | 2020-12-05 09:45 | NUR ---
IP: Informed pt of negative COVID test. Pt verbalized understanding.
== END 2020-12-03 18:00 | disposition home or self-care (01) | DRG 392 ==
LOC: ER 14:46 → 2 SOUTH 19:17
PROVIDERS: ADMIT Family Medicine; ATTEND Family Medicine
DX: K21.9 Gastro-esophageal reflux disease without esophagitis (principal); E87.5 Hyperkalemia; F17.210 Nicotine dependence, cigarettes, uncomplicated; F41.0 Panic disorder [episodic paroxysmal anxiety]; G47.00 Insomnia, unspecified; I25.10 Atherosclerotic heart disease of native coronary artery without angina pectoris; I45.10 Unspecified right bundle-branch block; Z96.652 Presence of left artificial knee joint; J43.2 Centrilobular emphysema; Z82.49 Family history of ischemic heart disease and other diseases of the circulatory system; Z90.710 Acquired absence of both cervix and uterus; Z20.822 Contact with and (suspected) exposure to COVID-19
CPT/HCPCS: 36415; 71045; 71275; 80048; 80076; 83690; 83880; 84484; 85025; 93005; 99285; Q9967; U0003; G0378

== ENCOUNTER 2020-12-09 17:59 | Emergency (ER) | payer MEDICARE, OTHER ==
[~2020-12-09] VITALS: Ht 172.7 cm; Wt 82.0 kg
[~2020-12-09 17:59] MED LIST changes: +CAPS1ADH8 TP; +LORA0.5T96 PO; +NAPR220C4 PO; +TRAZ-118 PO
--- NOTE | 2020-12-09 18:28 | PHYS DOC ---
Past Medical History Past Medical History: Anxiety, COPD, High Cholesterol, Hypertension Additional Past Medical Histor: arrythmia Past Surgical History: Hysterectomy Additional Past Surgical Histo: Neck Smoking Status: Former Smoker Alcohol Use: Rarely Drug Use: None General Adult EDM: Chief Complaint: ANXIETY/PANIC ATTACK HPI: HPI: Patient is a 70 year old female who was brought here by EMS from home due to panic and anxiety attack. Patient was seen here on December 02, 2020 for chest pain and trouble breathing, her work-up included lab CT scan her chest did not show any acute problem. Patient was tested negative for COVID-19 infection. Patient was discharged the next day after she was admitted for observation. Patient was prescribed Effexor for anxiety by her family physician. Patient took the first dose today, and afterward she started feeling hot flush all over her body with heart palpitation so she called EMS to take her here for evaluation. Patient denies any chest pain, no cough, no fever. Patient denies suicidal ideation, denies homicidal ideation. Review of Systems: Review of Systems: Constitutional: Denies fever or chills. [] Eyes: Denies change in visual acuity. [] HENT: Denies nasal congestion or sore throat. [] Respiratory: Denies cough or shortness of breath. [] Cardiovascular: Negative for chest pain or edema, positive heart palpitation. GI: Denies abdominal pain, nausea, vomiting, bloody stools or diarrhea. [] : Denies dysuria. [] Musculoskeletal: Denies back pain or joint pain. [] Integument: Denies rash. [] Neurologic: Denies headache, focal weakness or sensory changes. [] Endocrine: Denies polyuria or polydipsia. [] Lymphatic: Denies swollen glands. [] Psychiatric: Denies depression or anxiety. [] Heart Score: Risk Factors: Risk Factors: DM, Current or recent (<one month) smoker, HTN, HLP, family history of CAD, obesity. Risk Scores: Score 0 - 3: 2.5% MACE over next 6 weeks - Discharge Home Score 4 - 6: 20.3% MACE over next 6 weeks - Admit for Clinical Observation Score 7 - 10: 72.7% MACE over next 6 weeks - Early Invasive Strategies Allergies: Allergies: Allergies Coded Allergies Type Severity Reaction Last Updated Verified No Known Drug Allergies 06/23/17 No Physical Exam: PE: Constitutional: Well developed, well nourished, no acute distress, non-toxic appearance. [] HENT: Normocephalic, atraumatic, bilateral external ears normal, oropharynx moist, no oral exudates, nose normal. [] Eyes: PERRLA, EOMI, conjunctiva normal, no discharge. [] Neck: Normal range of motion, no tenderness, supple, no stridor. [] Cardiovascular: Sinus tachycardia with systolic heart murmur. No pitting edema Lungs & Thorax: Bilateral breath sounds clear to auscultation [] Abdomen: Bowel sounds normal, soft, no tenderness, no masses, no pulsatile masses. [] Skin: Warm, dry, no erythema, no rash. [] Back: No tenderness, no CVA tenderness. [] Extremities: No tenderness, no cyanosis, no clubbing, ROM intact, no edema. [] Neurologic: Alert and oriented X 3, normal motor function, normal sensory function, no focal deficits noted. [] Psychologic: Affect normal, judgement normal, mood normal. [] Current Patient Data: Labs: Laboratory Tests Test 12/09/20 18:39 12/09/20 20:50 White Blood Count 7.1 x10^3/uL Red Blood Count 3.66 x10^6/uL Hemoglobin 12.0 g/dL Hematocrit 34.9 % Mean Corpuscular Volume 95 fL Mean Corpuscular Hemoglobin 33 pg Mean Corpuscular Hemoglobin Concent 34 g/dL Red Cell Distribution Width 13.3 % Platelet Count 176 x10^3/uL Neutrophils (%) (Auto) 65 % Lymphocytes (%) (Auto) 17 % Monocytes (%) (Auto) 16 % Eosinophils (%) (Auto) 1 % Basophils (%) (Auto) 0 % Neutrophils # (Auto) 4.6 x10^3/uL Lymphocytes # (Auto) 1.2 x10^3/uL Monocytes # (Auto) 1.2 x10^3/uL Eosinophils # (Auto) 0.1 x10^3/uL Basophils # (Auto) 0.0 x10^3/uL Sodium Level 138 mmol/L Potassium Level 3.5 mmol/L Chloride Level 105 mmol/L Carbon Dioxide Level 25 mmol/L Anion Gap 8 Blood Urea Nitrogen 14 mg/dL Creatinine 0.9 mg/dL Estimated GFR (Cockcroft-Gault) 62.1 BUN/Creatinine Ratio 16 Glucose Level 105 mg/dL Calcium Level 9.0 mg/dL Magnesium Level 1.7 mg/dL Total Bilirubin 0.3 mg/dL Aspartate Amino Transf (AST/SGOT) 19 U/L Alanine Aminotransferase (ALT/SGPT) 25 U/L Alkaline Phosphatase 119 U/L Troponin I Quantitative < 0.017 ng/mL KB-Jmy-M-Type Natriuretic Peptide 343 pg/mL Total Protein 6.9 g/dL Albumin 3.8 g/dL Albumin/Globulin Ratio 1.2 Lipase 112 U/L Urine Collection Type Unknown Urine Color Yellow Urine Clarity Clear Urine pH 6.0 Urine Specific [place] 1.010 Urine Protein Negative mg/dL Urine Glucose (UA) Negative mg/dL Urine Ketones (Stick) Negative mg/dL Urine Blood Negative Urine Nitrite Negative Urine Bilirubin Negative Urine Urobilinogen Dipstick 0.2 mg/dL Urine Leukocyte Esterase Negative Urine RBC Occ /HPF Urine WBC Occ /HPF Urine Squamous Epithelial Cells Mod /LPF Urine Bacteria Few /HPF Urine Mucus Slight /LPF Urine Opiates Screen Neg Urine Methadone Screen Neg Urine Barbiturates Neg Urine Phencyclidine Screen Neg Urine Amphetamine/Methamphetamine Neg Urine Benzodiazepines Screen Neg Urine Cocaine Screen Neg Urine Cannabinoids Screen Neg Urine Ethyl Alcohol Neg Current Medications Medications (Trade) Dose Ordered Sig/Jamal Route PRN Reason Start Time Stop Time Status Last Admin Dose Admin Lorazepam (Ativan Inj) 1 mg 1X ONCE IVP 12/09/20 18:30 12/09/20 18:32 DC 12/09/20 18:55 Magnesium Sulfate/ Dextrose 100 ml @ 100 mls/hr 1X ONCE IV 12/09/20 19:45 12/09/20 20:44 DC 12/09/20 20:32 Vital Signs: Vital Signs Date Time Temp Pulse Resp B/P (MAP) Pulse Ox O2 Delivery O2 Flow Rate FiO2 12/09/20 18:16 107 12 168/77 (107) 98 Room Air EKG: EKG: EKG was done at 1848, heart rate 106 beats per minute, sinus tachycardia, no ST segment elevation. Radiology/Procedures: Radiology/Procedures: [][facility] [address] [place], [place] [id number] IMAGING REPORT Signed PATIENT: CONNIE BRUNER ACCOUNT: [id number] : 1950 LOCATION: ER AGE: 70 SEX: F EXAM STATUS: REG ER ORD. PHYSICIAN: CARO LEVY DO REASON: SOA, CHEST PAIN, HEART PALPITATION PROCEDURE: PORTABLE CHEST 1V EXAM: XR CHEST 1V INDICATION: Reason: SOA, CHEST PAIN, HEART PALPITATION / Spl. Instructions: / History: . TECHNIQUE: Single view COMPARISON: 12/02/2020 chest x-ray FINDINGS: The heart size is normal. The great vessels appear unremarkable. There is no hilar or mediastinal mass. The lungs are clear. There is no pleural effusion or pneumothorax. There are no significant osseous abnormalities. IMPRESSION: No active cardiopulmonary disease. Electronically signed by: Stormy Hernandez MD (12/09/2020 9:04 PM) [facility] [place] DICTATED and SIGNED BY: STORMY HERNANDEZ MD DATE: 12/09/20 [id number] 0 Course & Med Decision Making: Course & Med Decision Making Pertinent Labs and Imaging studies reviewed. (See chart for details) Patient was given Ativan in the ER, she feels much better. Patient is most likely had adverse reaction to the Effexor. Patient was told to stop taking this medication DIMAS, patient will need to follow-up with her family doctor for evaluation and treatment on Friday. Patient is here with her. He will take her home today. Dee Disclaimer: Dee Disclaimer: This electronic medical record was generated, in whole or in part, using a voice recognition dictation system. Departure Departure Impression: Primary Impression: Drug side effects Additional Impressions: Anxiety Hypomagnesemia Disposition: 01 DC HOME SELF CARE/HOMELESS Condition: IMPROVED Referrals: NO PCP (PCP) Follow up with your doctor on Friday. Patient Instructions: Anxiety and Panic Attacks, Drug Allergy Additional Instructions: DO NOT TAKE EFFEXOR, VENLAFAXINE, anymore. CARO LEVY DO Dec 09, 2020 18:28
[2020-12-09 19:02] LABS: BASO % 0 % (0-3); EOS # 0.1 x10^3/uL (0.0-0.7); EOS % 1 % (0-3); HEMATOCRIT 34.9 % (36.0-47.0); LYMPH # 1.2 x10^3/uL (1.0-4.8); LYMPH % 17 % (24-48); MEAN CORPUSCULAR HEMOGLOBIN 33 pg (25-35); MEAN CORPUSCULAR HGB CONC 34 g/dL (31-37); MEAN CORPUSCULAR VOLUME 95 fL (79-100); MONO # 1.2 x10^3/uL (0.0-1.1); MONO % 16 % (0-9); NEUT # 4.6 x10^3/uL (1.8-7.7); NEUT % 65 % (31-73); PLATELET COUNT 176 x10^3/uL (140-400); RED BLOOD COUNT 3.66 x10^6/uL (3.50-5.40); RED CELL DISTRIBUTION WIDTH 13.3 % (11.5-14.5); WHITE BLOOD COUNT 7.1 x10^3/uL (4.0-11.0)
[2020-12-09 19:12] LABS: CREATININE 0.9 mg/dL (0.6-1.0); GFR 62.1; POTASSIUM 3.5 mmol/L (3.5-5.1)
[2020-12-09 19:18] LABS: ALBUMIN 3.8 g/dL (3.4-5.0); ALBUMIN/GLOBULIN RATIO 1.2 (1.0-1.7); MAGNESIUM 1.7 mg/dL (1.8-2.4); TOTAL BILIRUBIN 0.3 mg/dL (0.2-1.0); TOTAL PROTEIN 6.9 g/dL (6.4-8.2)
[2020-12-09] MEDS ORDERED: MAGNESIUM SULFATE 1GM 100 ML IV ONE (19:45)
[2020-12-09 20:03] VITALS: BP 168/73
[2020-12-09 20:58] LABS: BILIRUBIN,URINE NEGATIVE (NEG); CLARITY,URINE CLEAR; COLOR,URINE YELLOW; NITRITE,URINE NEGATIVE (NEG); PROTEIN,URINE NEGATIVE (NEG-TRACE); UROBILINOGEN,URINE 0.2 mg/dL (0.2 mg/dL)
[2020-12-09 21:05] LABS: BACTERIA,URINE FEW /HPF (0-FEW); RBC,URINE OCC /HPF (0-2); WBC,URINE OCC /HPF (0-4)
[2020-12-09 21:06] LABS: AMPHETAMINE/METHAMPHETAMINE NEG (NEG); BARBITURATES NEG (NEG); BENZODIAZEPINES NEG (NEG); CANNABINOIDS NEG (NEG); COCAINE NEG (NEG); METHADONE NEG (NEG); OPIATES NEG (NEG); PHENCYCLIDINE NEG (NEG)
--- NOTE | 2020-12-09 21:10 | RAD ---
EXAM: XR CHEST 1V INDICATION: Reason: SOA, CHEST PAIN, HEART PALPITATION / Spl. Instructions: / History: . TECHNIQUE: Single view COMPARISON: 12/02/2020 chest x-ray FINDINGS: The heart size is normal. The great vessels appear unremarkable. There is no hilar or mediastinal mass. The lungs are clear. There is no pleural effusion or pneumothorax. There are no significant osseous abnormalities. IMPRESSION: No active cardiopulmonary disease. Electronically signed by: Fracisco Hernandez MD (12/09/2020 9:04 PM) [facility] [place]
--- NOTE | 2020-12-11 14:58 | EKG ---
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
== END 2020-12-09 21:56 | disposition home or self-care (01) ==
LOC: ER 17:59
DX: F41.9 Anxiety disorder, unspecified (principal); T43.215A Adverse effect of selective serotonin and norepinephrine reuptake inhibitors, initial encounter; E83.42 Hypomagnesemia; J44.9 Chronic obstructive pulmonary disease, unspecified; E78.00 Pure hypercholesterolemia, unspecified; I10 Essential (primary) hypertension; Z87.891 Personal history of nicotine dependence; Z90.710 Acquired absence of both cervix and uterus; Y92.89 Other specified places as the place of occurrence of the external cause
CPT/HCPCS: 36415; 71045; 80053; 80307; 81001; 83690; 83735; 83880; 84484; 85025; 96365; 96375; 99285; J2060; J3475; 93005

== ENCOUNTER 2020-12-14 19:06 | Emergency (ER) | payer MEDICARE, OTHER ==
[~2020-12-14] VITALS: Ht 172.7 cm; Wt 56.8 kg
[2020-12-14] MEDS ORDERED: METOPROLOL TART IMMED RELEASE 25 MG TABLET. PO ONE (20:00)
[2020-12-14 20:04] LABS: BASO % 1 % (0-3); EOS # 0.1 x10^3/uL (0.0-0.7); EOS % 1 % (0-3); HEMATOCRIT 37.4 % (36.0-47.0); HEMOGLOBIN 12.8 g/dL (12.0-15.5); LYMPH # 1.3 x10^3/uL (1.0-4.8); LYMPH % 20 % (24-48); MEAN CORPUSCULAR HEMOGLOBIN 32 pg (25-35); MEAN CORPUSCULAR HGB CONC 34 g/dL (31-37); MEAN CORPUSCULAR VOLUME 95 fL (79-100); MONO # 1.1 x10^3/uL (0.0-1.1); MONO % 18 % (0-9); NEUT # 3.9 x10^3/uL (1.8-7.7); NEUT % 61 % (31-73); PLATELET COUNT 199 x10^3/uL (140-400); RED BLOOD COUNT 3.95 x10^6/uL (3.50-5.40); RED CELL DISTRIBUTION WIDTH 13.1 % (11.5-14.5); WHITE BLOOD COUNT 6.4 x10^3/uL (4.0-11.0)
[2020-12-14 20:13] LABS: CALCIUM 9.4 mg/dL (8.5-10.1); POTASSIUM 3.5 mmol/L (3.5-5.1)
[2020-12-14 20:18] LABS: ALBUMIN 4.1 g/dL (3.4-5.0); ALBUMIN/GLOBULIN RATIO 1.1 (1.0-1.7); TOTAL BILIRUBIN 0.5 mg/dL (0.2-1.0); TOTAL PROTEIN 7.7 g/dL (6.4-8.2)
--- NOTE | 2020-12-14 20:19 | RAD ---
INDICATION: Reason: htn / Spl. Instructions: / History: COMPARISON: December 09, 2020 FINDINGS: Single view of chest obtained. Cardiac silhouette is unremarkable except calcific atherosclerosis. Degenerative changes the spine. M ild interstitial prominence is again seen bilaterally and similar to prior. Probable calcified lymph nodes which could be sequela of old granulomatous disease IMPRESSION: * Similar exam compared to prior without new region of consolidation. Electronically signed by: Cody Brannon MD (12/14/2020 8:17 PM) [id number]
--- NOTE | 2020-12-14 20:23 | PHYS DOC ---
Past Medical History Past Medical History: Anxiety, COPD, High Cholesterol, Hypertension Additional Past Medical Histor: arrythmia Past Surgical History: Hysterectomy Additional Past Surgical Histo: Neck Smoking Status: Former Smoker Alcohol Use: Rarely Drug Use: None General Adult EDM: Chief Complaint: HYPERTENSION HPI: HPI: Patient is a 70 year old female with a history of anxiety, hypertension, high cholesterol, COPD, who presents to the ED today complaining of high blood pressure and headache, symptoms began this evening. Patient states was started on metoprolol today for hypertension by the PCP. She is supposed to take 25 mg daily. She took 12.5 mg and then checked her blood pressure right away. She states her blood pressure was still high. She states she felt she was having hot flashes. She requested the to bring her to the ED. Patient denies anything specifically exacerbating or relieving her headache. Rates the head ache as 4 out of 10 describing it as throbbing and generalized. She appears anxious. Of note patient has been seen in the ED multiple times since the beginning of the year. On December 02, 2020 patient was seen in the ED for chest pain and shortness of breath. She was worked up and even admitted for chest pain rule out. Her work-up was negative and she was sent home. Her PCP was concerned she has anxiety and started her on Effexor. She took the first dose of Effexor on December 09 2020 and stated she felt she had hot flashes and palpitations. She called EMS who brought her to the ED where she was worked up again. She was instructed not to take Effexor and discharged to home. Today her PCP called in metoprolol 25 mg for her. Review of Systems: Review of Systems: Constitutional: Denies fever or chills. [] Eyes: Denies change in visual acuity. [] HENT: Denies nasal congestion or sore throat. [] Respiratory: Denies cough or shortness of breath. [] Cardiovascular: Reports high blood pressure. Denies chest pain or edema. [] GI: Denies abdominal pain, nausea, vomiting, bloody stools or diarrhea. [] : Denies dysuria. [] Musculoskeletal: Denies back pain or joint pain. [] Integument: Denies rash. [] Neurologic: Reports headache, denies focal weakness or sensory changes. [] Psychiatric: Denies depression or anxiety. [] Heart Score: Risk Factors: Risk Factors: DM, Current or recent (<one month) smoker, HTN, HLP, family history of CAD, obesity. Risk Scores: Score 0 - 3: 2.5% MACE over next 6 weeks - Discharge Home Score 4 - 6: 20.3% MACE over next 6 weeks - Admit for Clinical Observation Score 7 - 10: 72.7% MACE over next 6 weeks - Early Invasive Strategies Current Medications: Current Medications Medications (Trade) Dose Ordered Sig/Jamal Start Time Stop Time Status Last Admin Dose Admin Metoprolol Tartrate (Lopressor) 12.5 mg 1X ONCE 12/14/20 20:00 12/14/20 20:01 DC Allergies: Allergies: Allergies Coded Allergies Type Severity Reaction Last Updated Verified No Known Drug Allergies 06/23/17 No Physical Exam: PE: Constitutional: Well developed, well nourished, no acute distress, non-toxic appearance. [] HENT: Normocephalic, atraumatic, bilateral external ears normal, oropharynx moist, no oral exudates, nose normal. [] Eyes: PERRLA, EOMI, conjunctiva normal, no discharge. [] Neck: Normal range of motion, no tenderness, supple, no stridor. [] Cardiovascular:Heart rate regular rhythm, no murmur [] Lungs & Thorax: Bilateral breath sounds clear to auscultation [] Abdomen: Bowel sounds normal, soft, no tenderness, no masses, no pulsatile masses. [] Skin: Warm, dry, no erythema, no rash. [] Back: No tenderness, no CVA tenderness. [] Extremities: No tenderness, no cyanosis, no clubbing, ROM intact, no edema. [] Neurologic: Alert and oriented X 3, normal motor function, normal sensory function, no focal deficits noted. Cranial nerves II through XII intact Psychologic: Appears anxious, worried about everything Current Patient Data: Labs: Laboratory Tests Test 12/14/20 19:45 White Blood Count 6.4 x10^3/uL (4.0-11.0) Red Blood Count 3.95 x10^6/uL (3.50-5.40) Hemoglobin 12.8 g/dL (12.0-15.5) Hematocrit 37.4 % (36.0-47.0) Mean Corpuscular Volume 95 fL (79-100) Mean Corpuscular Hemoglobin 32 pg (25-35) Mean Corpuscular Hemoglobin Concent 34 g/dL (31-37) Red Cell Distribution Width 13.1 % (11.5-14.5) Platelet Count 199 x10^3/uL (140-400) Neutrophils (%) (Auto) 61 % (31-73) Lymphocytes (%) (Auto) 20 % (24-48) L Monocytes (%) (Auto) 18 % (0-9) H Eosinophils (%) (Auto) 1 % (0-3) Basophils (%) (Auto) 1 % (0-3) Neutrophils # (Auto) 3.9 x10^3/uL (1.8-7.7) Lymphocytes # (Auto) 1.3 x10^3/uL (1.0-4.8) Monocytes # (Auto) 1.1 x10^3/uL (0.0-1.1) Eosinophils # (Auto) 0.1 x10^3/uL (0.0-0.7) Basophils # (Auto) 0.0 x10^3/uL (0.0-0.2) Laboratory Tests 12/14/20 19:45 Vital Signs: Vital Signs Date Time Temp Pulse Resp B/P (MAP) Pulse Ox O2 Delivery O2 Flow Rate FiO2 12/14/20 19:30 98.1 100 18 193/84 (120) 97 Room Air 98.1 EKG: EK interpreted by Dr. Vyas sinus rhythm HR 92 no STEMI[] Radiology/Procedures: Radiology/Procedures: []PROCEDURE: PORTABLE CHEST 1V INDICATION: Reason: htn / Spl. Instructions: / History: COMPARISON: December 09, 2020 FINDINGS: Single view of chest obtained. Cardiac silhouette is unremarkable except calcific atherosclerosis. Degenerative changes the spine. Mild interstitial prominence is again seen bilaterally and similar to prior. Probable calcified lymph nodes which could be sequela of old granulomatous disease IMPRESSION: * Similar exam compared to prior without new region of consolidation. Electronically signed by: Lindsay Cruz MD (12/14/2020 8:17 PM) [id number] DICTATED and SIGNED BY: LINDSAY CRUZ MD DATE: 12/14/20 [id number] Course & Med Decision Making: Course & Med Decision Making Pertinent Labs and Imaging studies reviewed. (See chart for details) This is a 70-year-old female patient with history of hypertension presenting today complaining of high blood pressure and a headache since this evening. See HPI for extensive information. Patient was seen in the ED on December 02, 2020 and admitted for chest pain rule out, her work-up was negative. Her PCP ordered Effexor for anxiety for her, she took first dose on December 09 and presented to the ED complaining of hot flashes and palpitations. She had another negative work-up and discharged to home with instructions to stop taking Effexor. Today her PCP ordered metoprolol 25 mg for her. She decided to take 12.5 mg stating she is afraid if she takes the whole dose she will have a reaction to the medicine then she retook her BP after taking the medicine and reports it was high and she had a headache she decided to come to the ED. She states she is very anxious about taking any medicine. BP was i was in the room was 179/84 with HR of 92, patient was given 12.5 of metoprolol to make her have a full dose. Blood pressure 144/67 with heart rate of 86 EKG is negative, labs are negative, chest x-ray is negative, UA is negative. This patient appears to be suffering from anxiety. I went to discharge patient and give her results. Her is in the room. As we talked state patient also got a prescription for citalopram and trinh s filled the prescription today but has not taken the medicine because she fears she will have some reaction. I talked to patient at length. I recommended she start taking the citalopram it will help with her anxiety. Patient also states she was set up for virtual counseling session, I recommended she ensures she does this virtual counseling to help with anxiety and f/u with PCP Dee Disclaimer: Dee Disclaimer: This electronic medical record was generated, in whole or in part, using a voice recognition dictation system. Departure Departure Impression: Primary Impression: Anxiety Additional Impressions: Hypertension Qualified Codes: I10 - Essential (primary) hypertension Headache Qualified Codes: R51.9 - Headache, unspecified Disposition: 01 DC HOME SELF CARE/HOMELESS Condition: STABLE Referrals: ZAIDA CAMPBELL MD (PCP) follow up next week Patient Instructions: Anxiety and Panic Attacks, Headache, FAQs, Hypertension Additional Instructions: You were evaluated in the emergency room for high blood pressure and a headache, your blood pressure has come down in the emergency room. We encourage you to take the full dose of Metoprolol that was ordered by your doctor. You can consider going for counseling at [facility] to help manage anxiety. MEAGHAN GELLER APRN Dec 14, 2020 20:23
[2020-12-14 20:34] LABS: BILIRUBIN,URINE NEGATIVE (NEG); CLARITY,URINE CLEAR; COLOR,URINE YELLOW; NITRITE,URINE NEGATIVE (NEG); PH,URINE 6.5 (<5.0-8.0); PROTEIN,URINE NEGATIVE (NEG-TRACE); UROBILINOGEN,URINE 0.2 mg/dL (0.2 mg/dL)
[2020-12-14 20:41] LABS: BARBITURATES NEG (NEG); BENZODIAZEPINES NEG (NEG); CANNABINOIDS NEG (NEG); COCAINE NEG (NEG); METHADONE NEG (NEG); OPIATES NEG (NEG); PHENCYCLIDINE NEG (NEG)
[2020-12-14 20:42] LABS: AMPHETAMINE/METHAMPHETAMINE NEG (NEG); HYALINE CASTS, URINE FEW /HPF
[2020-12-14 20:43] LABS: BACTERIA,URINE FEW /HPF (0-FEW)
[2020-12-14 21:56] VITALS: BP 164/71
--- NOTE | 2020-12-15 08:27 | EKG ---
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
== END 2020-12-14 22:31 | disposition home or self-care (01) ==
LOC: ER 19:06
DX: F41.9 Anxiety disorder, unspecified (principal); I10 Essential (primary) hypertension; R51.9 Headache, unspecified; J44.9 Chronic obstructive pulmonary disease, unspecified; E78.00 Pure hypercholesterolemia, unspecified; Z87.891 Personal history of nicotine dependence; Z79.899 Other long term (current) drug therapy
CPT/HCPCS: 36415; 71045; 80053; 80307; 81001; 83735; 83880; 84443; 84484; 85025; 93005; 99285-25

== ENCOUNTER 2021-01-05 13:20 | Emergency (ER) | payer MEDICARE, OTHER ==
[~2021-01-05] VITALS: Ht 172.7 cm; Wt 79.5 kg
[2021-01-05] MEDS ORDERED: fentaNYL PF VIAL 100 MCG/2 ML VIAL IV ONE (15:00)
[2021-01-05] MEDS ORDERED: IV NORMAL SALINE 1000ML BAG 1,000 ML IV ONE (15:00)
[2021-01-05] MEDS ORDERED: ONDANSETRON PF 4 MG/2 ML VIAL. IV ONE (15:00)
[2021-01-05 15:28] LABS: BASO % 1 % (0-3); EOS % 1 % (0-3); HEMATOCRIT 34.5 % (36.0-47.0); LYMPH # 1.7 x10^3/uL (1.0-4.8); LYMPH % 22 % (24-48); MEAN CORPUSCULAR HEMOGLOBIN 32 pg (25-35); MEAN CORPUSCULAR HGB CONC 35 g/dL (31-37); MEAN CORPUSCULAR VOLUME 93 fL (79-100); MONO # 1.3 x10^3/uL (0.0-1.1); MONO % 17 % (0-9); NEUT # 4.8 x10^3/uL (1.8-7.7); NEUT % 61 % (31-73); PLATELET COUNT 255 x10^3/uL (140-400); RED CELL DISTRIBUTION WIDTH 12.5 % (11.5-14.5); WHITE BLOOD COUNT 7.9 x10^3/uL (4.0-11.0)
[2021-01-05 15:45] LABS: CALCIUM 8.9 mg/dL (8.5-10.1); CREATININE 0.9 mg/dL (0.6-1.0); GFR 62.1; POTASSIUM 3.8 mmol/L (3.5-5.1)
[2021-01-05 15:47] LABS: ALBUMIN 3.3 g/dL (3.4-5.0); ALBUMIN/GLOBULIN RATIO 0.9 (1.0-1.7); MAGNESIUM 1.8 mg/dL (1.8-2.4); TOTAL BILIRUBIN 0.3 mg/dL (0.2-1.0); TOTAL PROTEIN 7.1 g/dL (6.4-8.2)
--- NOTE | 2021-01-05 16:12 | RAD ---
Limited abdomen ultrasound HISTORY: Right upper quadrant abdominal pain and nausea. FINDINGS: The imaged pancreas, upper abdominal aorta and upper abdominal IVC are normal. There is mildly increased liver echogenicity relative to renal parenchyma may indicate mild imaging c hanges of liver steatosis. No liver mass. Hepatopedal portal vein blood flow. No gallstones or inflam matory changes of the gallbladder. No biliary ductal dilation common bile duct diameter is 4 mm. Right renal length 8.4 cm. Mild renal cortical atrophy. No mass or hydronephrosis documented. Spleen and left kidney were not evaluated. IMPRESSION: Mild increased liver echogenicity may represent mild imaging changes of liver steatosis. Otherwise negative exam. Electronically signed by: Maxim aHwkins MD (01/05/2021 4:09 PM) [facility]
[2021-01-05 17:17] LABS: BILIRUBIN,URINE NEGATIVE (NEG); CLARITY,URINE CLEAR; COLOR,URINE YELLOW; NITRITE,URINE NEGATIVE (NEG); PH,URINE 6.5 (<5.0-8.0); PROTEIN,URINE NEGATIVE (NEG-TRACE); UROBILINOGEN,URINE 0.2 mg/dL (0.2 mg/dL)
[2021-01-05 17:41] LABS: BACTERIA,URINE FEW /HPF (0-FEW)
[2021-01-05 17:42] LABS: RBC,URINE 0 /HPF (0-2)
--- NOTE | 2021-01-05 18:05 | ED.ADGEN ---
Past Medical History Past Medical History: Anxiety, COPD, High Cholesterol, Hypertension Additional Past Medical Histor: arrythmia Past Surgical History: Appendectomy, Hysterectomy Additional Past Surgical Histo: Neck Smoking Status: Former Smoker Alcohol Use: Rarely Drug Use: None General Adult EDM: Chief Complaint: ABDOMINAL PAIN HPI: HPI: Patient is a 70 year old female who presents to the emergency department with complaints of right upper quadrant abdominal pain that radiates around to the right side of her back with nausea that began about a month ago. Patient reports that she has noticed increased symptoms over the last 2 weeks. Patient states that the pain usually increases after she eats anything. She denies any vomiting, diarrhea, fever, cough, chest pain, shortness of breath, body aches, fatigue, fever, dysuria, increased urinary frequency, hematuria, or difficulty voiding. The patient reports that the pain does not increase with movement or palpation. She currently rates the pain 6 out of 10 on pain scale, she denies any alleviating factors, the pain typically increases after she eats. Patient denies any known history of gallbladder disease. Review of Systems: Review of Systems: Complete ROS is negative unless otherwise noted in HPI. Current Medications: Current Medications Medications (Trade) Dose Ordered Sig/Jamal Start Time Stop Time Status Last Admin Dose Admin Fentanyl Citrate (Fentanyl 2ml Vial) 25 mcg 1X ONCE 01/05/21 15:00 01/05/21 15:02 DC 01/05/21 15:21 25 MCG Info (CONTRAST GIVEN -- Rx MONITORING) 1 each PRN DAILY PRN 01/05/21 18:30 01/05/21 19:33 DC Iohexol (Omnipaque 300 Mg/ml) 75 ml 1X ONCE 01/05/21 18:30 01/05/21 18:31 DC 01/05/21 18:20 75 ML Ondansetron HCl (Zofran) 4 mg 1X ONCE 01/05/21 15:00 01/05/21 15:02 DC 01/05/21 15:20 4 MG Sodium Chloride 1,000 ml @ 1,000 mls/hr 1X ONCE 01/05/21 15:00 01/05/21 15:59 DC 01/05/21 15:20 1,000 MLS/HR Allergies: Allergies: Allergies Coded Allergies Type Severity Reaction Last Updated Verified No Known Drug Allergies 06/23/17 No Physical Exam: PE: See Above Constitutional: Well developed, well nourished, no acute distress, non-toxic appearance. [] HENT: Normocephalic, atraumatic, bilateral external ears normal, nose normal. [] Eyes: PERRLA, EOMI, conjunctiva normal, no discharge. [] Neck: Normal range of motion, no stridor. [] Cardiovascular:Heart rate regular rhythm Lungs & Thorax: Respirations even and unlabored, no retractions, no respiratory distress Abdomen: soft, right upper quadrant tenderness to palpation, no rebound tenderness, no guarding, no palpable mass, no pulsatile mass Back: No CVA tenderness, no bony tenderness, no paraspinal tenderness Skin: Warm, dry, no erythema, no rash. [] Extremities: No cyanosis, ROM intact, no edema. [] Neurologic: Alert and oriented X 3, no focal deficits noted. [] Psychologic: Affect normal, judgement normal, mood normal. [] Current Patient Data: Labs: Laboratory Tests Test 01/05/21 15:10 01/05/21 17:06 White Blood Count 7.9 x10^3/uL (4.0-11.0) Red Blood Count 3.70 x10^6/uL (3.50-5.40) Hemoglobin 12.0 g/dL (12.0-15.5) Hematocrit 34.5 % (36.0-47.0) L Mean Corpuscular Volume 93 fL (79-100) Mean Corpuscular Hemoglobin 32 pg (25-35) Mean Corpuscular Hemoglobin Concent 35 g/dL (31-37) Red Cell Distribution Width 12.5 % (11.5-14.5) Platelet Count 255 x10^3/uL (140-400) Neutrophils (%) (Auto) 61 % (31-73) Lymphocytes (%) (Auto) 22 % (24-48) L Monocytes (%) (Auto) 17 % (0-9) H Eosinophils (%) (Auto) 1 % (0-3) Basophils (%) (Auto) 1 % (0-3) Neutrophils # (Auto) 4.8 x10^3/uL (1.8-7.7) Lymphocytes # (Auto) 1.7 x10^3/uL (1.0-4.8) Monocytes # (Auto) 1.3 x10^3/uL (0.0-1.1) H Eosinophils # (Auto) 0.0 x10^3/uL (0.0-0.7) Basophils # (Auto) 0.0 x10^3/uL (0.0-0.2) Sodium Level 141 mmol/L (136-145) Potassium Level 3.8 mmol/L (3.5-5.1) Chloride Level 103 mmol/L (98-107) Carbon Dioxide Level 31 mmol/L (21-32) Anion Gap 7 (6-14) Blood Urea Nitrogen 5 mg/dL (7-20) L Creatinine 0.9 mg/dL (0.6-1.0) Estimated GFR (Cockcroft-Gault) 62.1 BUN/Creatinine Ratio 6 (6-20) Glucose Level 98 mg/dL (70-99) Calcium Level 8.9 mg/dL (8.5-10.1) Magnesium Level 1.8 mg/dL (1.8-2.4) Total Bilirubin 0.3 mg/dL (0.2-1.0) Aspartate Amino Transferase (AST) 19 U/L (15-37) Alanine Aminotransferase (ALT) 22 U/L (14-59) Alkaline Phosphatase 163 U/L (46-116) H Total Protein 7.1 g/dL (6.4-8.2) Albumin 3.3 g/dL (3.4-5.0) L Albumin/Globulin Ratio 0.9 (1.0-1.7) L Lipase 83 U/L (73-393) Urine Collection Type Unknown Urine Color Yellow Urine Clarity Clear Urine pH 6.5 (<5.0-8.0) Urine Specific [place] <=1.005 (1.000-1.030) Urine Protein Negative mg/dL (NEG-TRACE) Urine Glucose (UA) Negative mg/dL (NEG) Urine Ketones (Stick) Negative mg/dL (NEG) Urine Blood Negative (NEG) Urine Nitrite Negative (NEG) Urine Bilirubin Negative (NEG) Urine Urobilinogen Dipstick 0.2 mg/dL (0.2 mg/dL) Urine Leukocyte Esterase Negative (NEG) Urine RBC 0 /HPF (0-2) Urine WBC 1-4 /HPF (0-4) Urine Squamous Epithelial Cells Many /LPF Urine Bacteria Few /HPF (0-FEW) Laboratory Tests 2/26/21 15:10 Laboratory Tests 01/05/21 15:10 Vital Signs: Vital Signs Date Time Temp Pulse Resp B/P (MAP) Pulse Ox O2 Delivery O2 Flow Rate FiO2 01/05/21 19:21 86 18 157/68 (97) 96 Room Air 01/05/21 15:00 97.7 97.7 EKG: EKG: [] Heart Score: Risk Factors: Risk Factors: DM, Current or recent (<one month) smoker, HTN, HLP, family history of CAD, obesity. Risk Scores: Score 0 - 3: 2.5% MACE over next 6 weeks - Discharge Home Score 4 - 6: 20.3% MACE over next 6 weeks - Admit for Clinical Observation Score 7 - 10: 72.7% MACE over next 6 weeks - Early Invasive Strategies Radiology/Procedures: Radiology/Procedures: PROCEDURE: ABDOMEN LTD Limited abdomen ultrasound HISTORY: Right upper quadrant abdominal pain and nausea. FINDINGS: The imaged pancreas, upper abdominal aorta and upper abdominal IVC are normal. There is mildly increased liver echogenicity relative to renal parenchyma may indicate mild imaging changes of liver steatosis. No liver mass. Hepatopedal portal vein blood flow. No gallstones or inflammatory changes of the gallbladder . No biliary ductal dilation common bile duct diameter is 4 mm. Right renal length 8.4 cm. Mild renal cortical atrophy. No mass or hydronephrosis documented. Spleen and left kidney were not evaluated. IMPRESSION: Mild increased liver echogenicity may represent mild imaging changes of liver steatosis. Otherwise negative exam. PROCEDURE: CT ABD PELV W/ IV CONTRST ONLY Exam: CT of abdomen and pelvis with contrast INDICATION: Right quadrant abdominal pain TECHNIQUE: Sequential axial images through the abdomen and pelvis obtained following the administration of 75 mL of Isovue-370 IV contrast. Sagittal and coronal reformatted images were reconstructed from the axial data and reviewed. Comparisons: Ultrasound 01/05/2021 FINDINGS: Heart size is normal. No pericardial effusion. Strandy opacities at dependent portion lungs likely representing atelectasis. No pleural effusion. Liver, spleen, pancreas, gallbladder and adrenals are unremarkable. No perinephric inflammation or hydronephrosis. No renal or ureteral calculi are identified. Bladder is decompressed not well evaluated. Uterus is absent. No abnormal adnexal mass. Large and small bowel are unremarkable. Appendix is nonidentified. No free intra-abdominal air or fluid. No obstruction. Abdominal aorta has a normal course and caliber. Abdominal vasculature is patent. No enlarged intra-abdominal lymph nodes are identified. No suspicious osseous lesions or acute fractures. IMPRESSION: No acute process identified within the abdomen or pelvis. [] Course & Med Decision Making: Course & Med Decision Making Pertinent Labs and Imaging studies reviewed. (See chart for details) 70-year-old female presented for right upper quadrant abdominal pain that began 4 weeks ago. Work-up included labs, medications, and imaging. CBC was unremarkable; CMP revealed mildly elevated ALT phosphate of 163, otherwise unremarkable, UA was unremarkable; Ultrasound of the right upper quadrant revealed mild increased liver echogenicity with possible liver steatosis, there were no gallstones or inflammatory changes of the gallbladder. CT of the patient's abdomen and pelvis revealed no acute processes within the abdomen or the pelvis, the liver, spleen, gallbladder, and pancreas were all normal appearing. Patient was given 1 L normal saline, 4 mg Zofran, and 25 mcg of fentanyl, she reported feeling better after these medications. I advised the patient that she may be experiencing biliary colic. Prescription was written for hydrocodone to take as needed for severe pain. I instructed the patient to avoid high fatty foods as this may trigger her pain. I encouraged her to follow-up with her primary care doctor or surgeon Dr. Finch for further evaluation and treatment of this condition. I encouraged her to return to the ER if symptoms worsened or fever develop. Patient verbalized an understanding of home care, medications, follow-up, and return to ED instructions and was in agreement with the plan of care. [] Dee Disclaimer: Dee Disclaimer: This electronic medical record was generated, in whole or in part, using a voice recognition dictation system. Departure Departure Impression: Primary Impression: Biliary colic Disposition: 01 DC HOME SELF CARE/HOMELESS Condition: STABLE Referrals: ZAIDA CAMPBELL MD (PCP) KENDELL FINCH MD Patient Instructions: Biliary Colic, Fat and Cholesterol Control Diet, [id number] Additional Instructions: Follow the instructions and diet information provided. Follow up with your primary care doctor or Dr. Finch for further evaluation and treatment of your symptoms. Return to the ER if symptoms worsen. Scripts Hydrocodone Bit/Acetaminophen (HYDROCODONE-APAP 5-325 ) 1 Tab Tablet 0.5-1 TAB PO PRN Q6HRS PRN for SEVERE PAIN 7-10 for 5 Days, #10 TAB 0 Refills Prov: DARIAN COOLEY APRN 01/05/21 DARIAN COOLEY APRN Jan 05, 2021 18:05
[2021-01-05] MEDS ORDERED: CONTRAST GIVEN. MC PRN (18:30)
[2021-01-05] MEDS ORDERED: IOHEXOL 300 MG/ML 100ML VIAL. IV ONE (18:30)
--- NOTE | 2021-01-05 18:35 | RAD ---
Exam: CT of abdomen and pelvis with contrast INDICATION: Right quadrant abdominal pain TECHNIQUE: Sequential axial images through the abdomen and pelvis obtained following the administrati on of 75 mL of Isovue-370 IV contrast. Sagittal and coronal reformatted images were reconstructed fro m the axial data and reviewed. Comparisons: Ultrasound 01/05/2021 FINDINGS: Heart size is normal. No pericardial effusion. Strandy opacities at dependent portion lungs likely re presenting atelectasis. No pleural effusion. Liver, spleen, pancreas, gallbladder and adrenals are unremarkable. No perinephric inflammation or hydronephrosis. No renal or ureteral calculi are identified. Bladder is decompressed not well evaluated. Uterus is absent. No abnormal adnexal mass. Large and small bowel are unremarkable. Appendix is nonidentified. No free intra-abdominal air or flu id. No obstruction. Abdominal aorta has a normal course and caliber. Abdominal vasculature is patent. No enlarged intra-abdominal lymph nodes are identified. No suspicious osseous lesions or acute fractures. IMPRESSION: No acute process identified within the abdomen or pelvis. Exposure: One or more of the following in the visualized dose reduction techniques were utilized for this examination: 1. Automated exposure control 2. Adjustment of the MA and/or KV according to patient size 3. Use of iterative of reconstructive technique Electronically signed by: Brenda Santiago MD (01/05/2021 6:32 PM) [facility]
[2021-01-05] MEDS ORDERED: HYDR-2761 PO (19:01)
[2021-01-05 19:21] VITALS: BP 157/68
== END 2021-01-05 19:28 | disposition home or self-care (01) ==
LOC: ER 13:20
DX: K80.50 Calculus of bile duct without cholangitis or cholecystitis without obstruction (principal); J44.9 Chronic obstructive pulmonary disease, unspecified; E78.00 Pure hypercholesterolemia, unspecified; I10 Essential (primary) hypertension; Z87.891 Personal history of nicotine dependence; Z90.89 Acquired absence of other organs; Z90.710 Acquired absence of both cervix and uterus
CPT/HCPCS: 36415; 74177; 76705; 80053; 81001; 83690; 83735; 85025; 96361; 96374; 96375; 99285; J2405; J3010; J7030; Q9967